=== PATIENT | male | born 1940 | race Caucasian/White ===

== ENCOUNTER 2021-08-28 12:03 | Inpatient (IN) | payer MEDICARE ==
[2021-08-28 13:24] LABS: #Basophils 0.1 10x3/uL (0.0-0.2); #Eosinphils 0.4 10x3/uL (0.0-0.5); #Monocytes 0.8 10x3/uL (0.0-1.1); #Neutrophils 5.6 10x3/uL (1.5-8.4); %Basophils 0.7 % (0.0-2.0); %Eosinophils 4.3 % (0.0-6.0); %Lymphocytes 19.5 % (18.0-47.0); %Monocytes 9.2 % (0.0-10.0); %Neutrophils 65.8 % (40.0-75.0); Hemoglobin 8.4 g/dL (13.5-17.5); Mean Corpuscular HGB CONC 33.9 g/dL (32.0-36.0); Mean Corpuscular Hemoglobin 35.3 pg (27.0-33.0); Mean Corpuscular Volume 104.2 fl (81.2-95.1); Mean Platelet Volume 12.6 fl (7.4-10.4); Platelet Count 200 10x3/uL (150-450); RBC Distribution Width 13.4 % (11.5-14.5); Red Blood Cell (RBC) Count 2.38 10x6/uL (4.32-5.72); White Blood Cell (WBC) Count 8.4 10x3/uL (3.5-10.5)
[2021-08-28 13:57] LABS: ALT (SGPT) 10 U/L (8-55); AST (SGOT) 15 U/L (5-34); Albumin 3.7 g/dL (3.4-4.8); Alkaline Phosphatase 122 U/L (40-110); Anion Gap 28 mmol/L (10-20); BUN (Urea Nitrogen) 86 mg/dL (8.4-25.7); Bilirubin, Total 0.8 mg/dL (0.2-1.2); Calc. Creatinine Clearance 0 mL/min (70-130); Calcium 9.8 mg/dL (7.8-10.44); Carbon Dioxide 25 mmol/L (23-31); Chloride 92 mmol/L (98-107); Globulin 2.9 g/dL (2.4-3.5); Glucose 312 mg/dL (83-110); Potassium 4.7 mmol/L (3.5-5.1); Protein, Total 6.6 g/dL (5.8-8.1); Sodium 140 mmol/L (136-145)
[2021-08-28] MEDS ORDERED: Ketorolac Tromethamine 30 MG/ML VIAL ONE (14:12)
[2021-08-28 14:21] LABS: CKMB 2.5 ng/mL (0-6.6)
[2021-08-28] MEDS ORDERED: Acetaminophen 325 MG TAB PO PRN (15:55)
[2021-08-28] MEDS ORDERED: Ondansetron PF 4 MG/2 ML Vial IVP PRN (15:55)
[2021-08-28] MEDS ORDERED: Dextrose 5% in Water 1,000 ML IV PRN (16:19)
[2021-08-28] MEDS ORDERED: Dextrose 50% Abboject 50 ML SYRINGE SLOW IVP PRN (16:19)
[2021-08-28 16:33] LABS: Troponin I 0.242 ng/mL (< 0.028)
[2021-08-28 19:18] LABS: Iron 145 ug/dL (65-175); Iron Binding Capacity, Total 201 mcg/dL (261-462)
[2021-08-28 19:22] LABS: Troponin I 0.243 ng/mL (< 0.028)
[2021-08-28] MEDS ORDERED: Polyethylene Glycol 3350 17 GM Packet PO PRN (20:22)
[2021-08-28] MEDS ORDERED: hydrOXYzine 25 MG TAB PO SCH (20:30)
[2021-08-28] MEDS: HumaLOG 300 UNITS/3 ML VIAL SC PRN (21:24)
[2021-08-28] MEDS ORDERED: EPOETIN ALFA-EPBX (ESRD) 3,000 UNIT/ML VIAL SC SCH (23:59)
[2021-08-28] MEDS ORDERED: EPOETIN ALFA-EPBX (ESRD) 2,000 UNIT/ML VIAL SC SCH (23:59)
[2021-08-29 04:05] LABS: #Basophils 0.1 10x3/uL (0.0-0.2); #Eosinphils 0.5 10x3/uL (0.0-0.5); #Monocytes 1.1 10x3/uL (0.0-1.1); #Neutrophils 5.2 10x3/uL (1.5-8.4); %Basophils 0.6 % (0.0-2.0); %Eosinophils 6.3 % (0.0-6.0); %Lymphocytes 19.4 % (18.0-47.0); %Monocytes 12.6 % (0.0-10.0); %Neutrophils 60.7 % (40.0-75.0); Hemoglobin 8.4 g/dL (13.5-17.5); Mean Corpuscular HGB CONC 33.3 g/dL (32.0-36.0); Mean Corpuscular Hemoglobin 35.3 pg (27.0-33.0); Mean Corpuscular Volume 105.9 fl (81.2-95.1); Mean Platelet Volume 12.2 fl (7.4-10.4); Platelet Count 180 10x3/uL (150-450); RBC Distribution Width 13.3 % (11.5-14.5); Red Blood Cell (RBC) Count 2.38 10x6/uL (4.32-5.72); White Blood Cell (WBC) Count 8.5 10x3/uL (3.5-10.5)
[2021-08-29 04:08] LABS: Anion Gap 26 mmol/L (10-20); BUN (Urea Nitrogen) 80 mg/dL (8.4-25.7); Calc. Creatinine Clearance 5 mL/min (70-130); Calcium 9.9 mg/dL (7.8-10.44); Carbon Dioxide 21 mmol/L (23-31); Chloride 98 mmol/L (98-107); Glucose 207 mg/dL (83-110); Potassium 4.4 mmol/L (3.5-5.1); Sodium 141 mmol/L (136-145)
[2021-08-29 04:20] LABS: Platelet Morphology Comment Appears Adequate
[2021-08-29 04:21] LABS: Anisocytosis SLIGHT = 6-15 cells (100X) (0-5/hpf); Hypochromia SLIGHT = 6-15 cells (100X) (0-5/hpf); Macrocytosis SLIGHT = 6-15 cells (100X) (0-5/hpf); Microcytosis SLIGHT = 6-15 cells (100X) (0-5/hpf)
[2021-08-29] MEDS: HumaLOG 300 UNITS/3 ML VIAL SC PRN ×2 (05:48→17:05)
[2021-08-29] MEDS: traMADol HCl 50 MG TAB PO PRN (09:00)
[2021-08-29] MEDS ORDERED: ceFAZolin 2 GM/Dextrose 50 ML 2 GM in Premix Bag 1 BAG IVPB SCH (10:45)
[2021-08-29] MEDS ORDERED: Labetalol HCl 100 MG TAB PO PRN (14:39)
[2021-08-29] MEDS ORDERED: ALPRAZolam 0.25 MG TAB PO PRN (14:39)
[2021-08-29] MEDS ORDERED: cloNIDine 0.1 MG TAB PO PRN (15:31)
[2021-08-29] MEDS: Sevelamer Carbonate 800 MG TAB PO SCH ×2 (16:42→20:51)
[2021-08-29] MEDS: Polyethylene Glycol 3350 17 GM Packet PO SCH (20:35)
[2021-08-29] MEDS: Lantus 1000 UNITS/10 ML VIAL SC SCH (20:47)
[2021-08-29] MEDS: Losartan Potassium 50 MG TAB PO SCH (20:51)
[2021-08-29] MEDS: hydrOXYzine 25 MG TAB PO SCH (20:51)
[2021-08-29 23:36] LABS: SARS-CoV-2 NAA Rapid Test Not Detected (NotDetected)
[2021-08-30 04:44] LABS: #Basophils 0.1 10x3/uL (0.0-0.2); #Eosinphils 0.7 10x3/uL (0.0-0.5); #Neutrophils 5.3 10x3/uL (1.5-8.4); %Basophils 0.7 % (0.0-2.0); %Eosinophils 8.1 % (0.0-6.0); %Lymphocytes 19.9 % (18.0-47.0); %Neutrophils 59.5 % (40.0-75.0); Hemoglobin 7.8 g/dL (13.5-17.5); Mean Corpuscular HGB CONC 34.2 g/dL (32.0-36.0); Mean Corpuscular Hemoglobin 36.4 pg (27.0-33.0); Mean Corpuscular Volume 106.5 fl (81.2-95.1); Mean Platelet Volume 12.6 fl (7.4-10.4); Platelet Count 182 10x3/uL (150-450); RBC Distribution Width 13.2 % (11.5-14.5); Red Blood Cell (RBC) Count 2.14 10x6/uL (4.32-5.72); White Blood Cell (WBC) Count 8.9 10x3/uL (3.5-10.5)
[2021-08-30 04:54] LABS: Anion Gap 26 mmol/L (10-20); BUN (Urea Nitrogen) 80 mg/dL (8.4-25.7); Calc. Creatinine Clearance 5 mL/min (70-130); Calcium 9.7 mg/dL (7.8-10.44); Carbon Dioxide 23 mmol/L (23-31); Chloride 92 mmol/L (98-107); Glucose 284 mg/dL (83-110); Potassium 4.3 mmol/L (3.5-5.1); Sodium 137 mmol/L (136-145)
[2021-08-30 07:41] LABS: Macrocytosis SLIGHT = 6-15 cells (100X) (0-5/hpf); Platelet Morphology Comment Appears Adequate
[2021-08-30] MEDS ORDERED: EPINEPHrine 1 MG/ML AMP ONE ×2 (09:13→09:59)
[2021-08-30] MEDS ORDERED: Heparin 1,000 UNITS/ML VIAL ONE (09:13)
[2021-08-30] MEDS ORDERED: Protamine Sulfate 50 MG/5 ML VIAL ONE (09:14)
[2021-08-30] MEDS ORDERED: Heparin 5,000 UNITS/ML VIAL ONE (09:15)
[2021-08-30] MEDS ORDERED: Bupivacaine PF 0.5% 30 ML VIAL ONE (09:15)
[2021-08-30] MEDS ORDERED: Heparin 10,000 UNITS/ 10 ML VIAL ONE ×2 (09:19→13:06)
[2021-08-30] MEDS ORDERED: Lidocaine 1% (PF) 30 ML VIAL ONE (09:28)
[2021-08-30] MEDS ORDERED: Ropivacaine 0.5% HCl/PF (150 MG/30 ML VIAL) ONE (09:59)
[2021-08-30] MEDS ORDERED: Fentanyl 100 MCG/2 ML VIAL ONE (10:00)
[2021-08-30] MEDS ORDERED: Lidocaine 1% PF 5 ML VIAL ONE (10:00)
[2021-08-30] MEDS ORDERED: ceFAZolin 2 GM/Dextrose 50 ML IVPB ONE (10:02)
[2021-08-30] MEDS ORDERED: Sevelamer Carbonate 800 MG TAB PO SCH (10:30)
[2021-08-30] MEDS ORDERED: Propofol 1,000 MG/100 ML VIAL IV ONE (10:34)
[2021-08-30] MEDS ORDERED: ePHEDrine Sulfate 50 MG/10 ML VIAL ONE (13:09)
[2021-08-30] MEDS: hydrOXYzine 25 MG TAB PO SCH ×3 (16:20→20:39)
[2021-08-30] MEDS: Polyethylene Glycol 3350 17 GM Packet PO SCH ×2 (16:21→20:38)
[2021-08-30] MEDS: Furosemide 40 MG TAB PO SCH (16:22)
[2021-08-30] MEDS: Losartan Potassium 50 MG TAB PO SCH ×2 (16:34→20:39)
[2021-08-30] MEDS: Multivitamin W/ Minerals 1 TAB PO SCH (16:35)
[2021-08-30] MEDS: Sevelamer Carbonate 800 MG TAB PO SCH ×3 (16:35→21:11)
[2021-08-30] MEDS: HumaLOG 300 UNITS/3 ML VIAL SC PRN ×2 (16:38→20:47)
[2021-08-30] MEDS: Lantus 1000 UNITS/10 ML VIAL SC SCH (20:45)
[2021-08-31 05:33] LABS: #Eosinphils 0.6 10x3/uL (0.0-0.5); #Monocytes 1.2 10x3/uL (0.0-1.1); #Neutrophils 9.6 10x3/uL (1.5-8.4); %Basophils 0.3 % (0.0-2.0); %Eosinophils 5.2 % (0.0-6.0); %Lymphocytes 10.5 % (18.0-47.0); %Monocytes 9.6 % (0.0-10.0); %Neutrophils 74.5 % (40.0-75.0); Hemoglobin 6.6 g/dL (13.5-17.5); Mean Corpuscular HGB CONC 33.2 g/dL (32.0-36.0); Mean Corpuscular Hemoglobin 35.1 pg (27.0-33.0); Mean Corpuscular Volume 105.9 fl (81.2-95.1); Mean Platelet Volume 11.9 fl (7.4-10.4); Platelet Count 180 10x3/uL (150-450); RBC Distribution Width 13.4 % (11.5-14.5); Red Blood Cell (RBC) Count 1.88 10x6/uL (4.32-5.72); White Blood Cell (WBC) Count 12.9 10x3/uL (3.5-10.5)
[2021-08-31 05:47] LABS: Anion Gap 24 mmol/L (10-20); BUN (Urea Nitrogen) 93 mg/dL (8.4-25.7); Calc. Creatinine Clearance 5 mL/min (70-130); Calcium 9.7 mg/dL (7.8-10.44); Carbon Dioxide 25 mmol/L (23-31); Chloride 92 mmol/L (98-107); Glucose 150 mg/dL (83-110); Potassium 5.6 mmol/L (3.5-5.1); Sodium 135 mmol/L (136-145)
[2021-08-31] MEDS ORDERED: Clopidogrel Bisulfate 75 MG TAB PO SCH (09:00)
[2021-08-31] MEDS: Sevelamer Carbonate 800 MG TAB PO SCH ×3 (12:43→21:54)
[2021-08-31] MEDS: traMADol HCl 50 MG TAB PO PRN (12:43)
[2021-08-31] MEDS: Multivitamin W/ Minerals 1 TAB PO SCH (12:44)
[2021-08-31] MEDS: hydrOXYzine 25 MG TAB PO SCH ×3 (12:44→21:47)
[2021-08-31] MEDS: Polyethylene Glycol 3350 17 GM Packet PO SCH ×2 (12:45→22:16)
[2021-08-31] MEDS: HumaLOG 300 UNITS/3 ML VIAL SC PRN ×2 (12:46→15:59)
[2021-08-31] MEDS ORDERED: GoLYTELY 4,000 ml Bottle PO SCH (15:00)
[2021-08-31] MEDS: Lantus 1000 UNITS/10 ML VIAL SC SCH (22:15)
[2021-09-01 05:06] LABS: Anion Gap 26 mmol/L (10-20); BUN (Urea Nitrogen) 41 mg/dL (8.4-25.7); Calc. Creatinine Clearance 9 mL/min (70-130); Calcium 9.1 mg/dL (7.8-10.44); Carbon Dioxide 27 mmol/L (23-31); Chloride 93 mmol/L (98-107); Glucose 139 mg/dL (83-110); Potassium 4.1 mmol/L (3.5-5.1); Sodium 142 mmol/L (136-145)
[2021-09-01 05:14] LABS: #Eosinphils 0.4 10x3/uL (0.0-0.5); #Monocytes 1.2 10x3/uL (0.0-1.1); #Neutrophils 6.2 10x3/uL (1.5-8.4); %Basophils 0.4 % (0.0-2.0); %Eosinophils 3.9 % (0.0-6.0); %Lymphocytes 21.2 % (18.0-47.0); %Monocytes 11.9 % (0.0-10.0); %Neutrophils 62.1 % (40.0-75.0); Hemoglobin 8.5 g/dL (13.5-17.5); Mean Platelet Volume 12.1 fl (7.4-10.4); Platelet Count 179 10x3/uL (150-450); RBC Distribution Width 18.3 % (11.5-14.5)
[2021-09-01] MEDS ORDERED: PROPOFOL 20 ML ONE (08:47)
[2021-09-01] MEDS: hydrOXYzine 25 MG TAB PO SCH ×3 (14:42→20:23)
[2021-09-01 14:49] VITALS: BMI 24.5
[2021-09-01] MEDS: Sevelamer Carbonate 800 MG TAB PO SCH ×4 (15:19→20:23)
[2021-09-01] MEDS: Multivitamin W/ Minerals 1 TAB PO SCH (15:21)
[2021-09-01] MEDS: Thiamine 100 MG TAB PO SCH (15:21)
[2021-09-01] MEDS: traMADol HCl 50 MG TAB PO PRN (15:21)
[2021-09-01] MEDS: Folic Acid 1 MG TAB PO SCH (15:22)
[2021-09-01] MEDS: Polyethylene Glycol 3350 17 GM Packet PO SCH ×2 (15:23→21:43)
[2021-09-01] MEDS: Furosemide 40 MG TAB PO SCH (15:33)
[2021-09-01] MEDS: Losartan Potassium 50 MG TAB PO SCH (15:33)
[2021-09-01] MEDS: Lantus 1000 UNITS/10 ML VIAL SC SCH (20:23)
[2021-09-01] MEDS: HumaLOG 300 UNITS/3 ML VIAL SC PRN (20:23)
[2021-09-02 05:12] LABS: Anion Gap 20 mmol/L (10-20); BUN (Urea Nitrogen) 27 mg/dL (8.4-25.7); Calc. Creatinine Clearance 12 mL/min (70-130); Calcium 9.4 mg/dL (7.8-10.44); Carbon Dioxide 27 mmol/L (23-31); Chloride 95 mmol/L (98-107); Glucose 118 mg/dL (83-110); Potassium 4.1 mmol/L (3.5-5.1); Sodium 138 mmol/L (136-145)
[2021-09-02 05:30] LABS: #Eosinphils 0.4 10x3/uL (0.0-0.5); #Monocytes 0.9 10x3/uL (0.0-1.1); #Neutrophils 5.1 10x3/uL (1.5-8.4); %Basophils 0.4 % (0.0-2.0); %Lymphocytes 21.3 % (18.0-47.0); %Monocytes 10.7 % (0.0-10.0); %Neutrophils 62.1 % (40.0-75.0); Hemoglobin 7.7 g/dL (13.5-17.5); Mean Corpuscular Hemoglobin 34.1 pg (27.0-33.0); Mean Corpuscular Volume 103.1 fl (81.2-95.1); Mean Platelet Volume 12.2 fl (7.4-10.4); RBC Distribution Width 17.2 % (11.5-14.5); Red Blood Cell (RBC) Count 2.26 10x6/uL (4.32-5.72); White Blood Cell (WBC) Count 8.6 10x3/uL (3.5-10.5)
[2021-09-02 05:31] LABS: Platelet Count 169 10x3/uL (150-450)
[2021-09-02] MEDS: Sevelamer Carbonate 800 MG TAB PO SCH ×3 (09:22→20:22)
[2021-09-02] MEDS: Folic Acid 1 MG TAB PO SCH (09:22)
[2021-09-02] MEDS: Multivitamin W/ Minerals 1 TAB PO SCH (09:23)
[2021-09-02] MEDS: Polyethylene Glycol 3350 17 GM Packet PO SCH ×2 (09:23→20:23)
[2021-09-02] MEDS: Thiamine 100 MG TAB PO SCH (09:23)
[2021-09-02] MEDS: hydrOXYzine 25 MG TAB PO SCH ×3 (09:23→20:22)
[2021-09-02] MEDS: HumaLOG 300 UNITS/3 ML VIAL SC PRN (16:46)
[2021-09-02] MEDS: Lantus 1000 UNITS/10 ML VIAL SC SCH (21:50)
[2021-09-03 05:27] LABS: #Eosinphils 0.4 10x3/uL (0.0-0.5); #Neutrophils 6.4 10x3/uL (1.5-8.4); %Basophils 0.3 % (0.0-2.0); %Eosinophils 4.1 % (0.0-6.0); %Lymphocytes 18.3 % (18.0-47.0); %Monocytes 10.1 % (0.0-10.0); %Neutrophils 66.8 % (40.0-75.0); Hemoglobin 7.9 g/dL (13.5-17.5); Mean Corpuscular HGB CONC 33.2 g/dL (32.0-36.0); Mean Corpuscular Hemoglobin 33.9 pg (27.0-33.0); Mean Corpuscular Volume 102.1 fl (81.2-95.1); Mean Platelet Volume 11.8 fl (7.4-10.4); Platelet Count 160 10x3/uL (150-450); RBC Distribution Width 15.9 % (11.5-14.5); Red Blood Cell (RBC) Count 2.33 10x6/uL (4.32-5.72); White Blood Cell (WBC) Count 9.6 10x3/uL (3.5-10.5)
[2021-09-03 05:48] LABS: Anion Gap 17 mmol/L (10-20); BUN (Urea Nitrogen) 40 mg/dL (8.4-25.7); Calc. Creatinine Clearance 8 mL/min (70-130); Calcium 9.5 mg/dL (7.8-10.44); Carbon Dioxide 29 mmol/L (23-31); Chloride 94 mmol/L (98-107); Glucose 119 mg/dL (83-110); Potassium 4.4 mmol/L (3.5-5.1); Sodium 136 mmol/L (136-145)
[2021-09-03] MEDS: Sevelamer Carbonate 800 MG TAB PO SCH ×3 (08:22→20:27)
[2021-09-03] MEDS: Folic Acid 1 MG TAB PO SCH (08:22)
[2021-09-03] MEDS: Multivitamin W/ Minerals 1 TAB PO SCH (08:22)
[2021-09-03] MEDS: hydrOXYzine 25 MG TAB PO SCH ×3 (08:22→20:27)
[2021-09-03] MEDS: Thiamine 100 MG TAB PO SCH (08:23)
[2021-09-03] MEDS: Polyethylene Glycol 3350 17 GM Packet PO SCH ×2 (08:26→20:28)
[2021-09-03] MEDS: HumaLOG 300 UNITS/3 ML VIAL SC PRN (12:21)
[2021-09-03] MEDS: Lantus 1000 UNITS/10 ML VIAL SC SCH (20:44)
[2021-09-04 05:10] LABS: #Eosinphils 0.5 10x3/uL (0.0-0.5); #Monocytes 0.9 10x3/uL (0.0-1.1); #Neutrophils 5.5 10x3/uL (1.5-8.4); %Basophils 0.4 % (0.0-2.0); %Eosinophils 6.2 % (0.0-6.0); %Lymphocytes 15.8 % (18.0-47.0); %Monocytes 11.1 % (0.0-10.0); %Neutrophils 66.3 % (40.0-75.0); Hemoglobin 7.7 g/dL (13.5-17.5); Mean Corpuscular HGB CONC 33.5 g/dL (32.0-36.0); Mean Corpuscular Hemoglobin 33.9 pg (27.0-33.0); Mean Corpuscular Volume 101.3 fl (81.2-95.1); Mean Platelet Volume 11.6 fl (7.4-10.4); Platelet Count 158 10x3/uL (150-450); RBC Distribution Width 15.8 % (11.5-14.5); Red Blood Cell (RBC) Count 2.27 10x6/uL (4.32-5.72); White Blood Cell (WBC) Count 8.2 10x3/uL (3.5-10.5)
[2021-09-04 05:15] LABS: Anion Gap 21 mmol/L (10-20); BUN (Urea Nitrogen) 53 mg/dL (8.4-25.7); Calc. Creatinine Clearance 7 mL/min (70-130); Calcium 9.7 mg/dL (7.8-10.44); Carbon Dioxide 27 mmol/L (23-31); Chloride 92 mmol/L (98-107); Glucose 146 mg/dL (83-110); Potassium 4.8 mmol/L (3.5-5.1); Sodium 135 mmol/L (136-145)
[2021-09-04] MEDS: hydrOXYzine 25 MG TAB PO SCH ×3 (09:00→13:43)
[2021-09-04] MEDS ORDERED: EPOETIN ALFA-EPBX (ESRD) 4,000 UNIT/ML VIAL SC SCH (12:00)
[2021-09-04 12:53] VITALS: BP 125/60; TEMP 98
[2021-09-04] MEDS: Multivitamin W/ Minerals 1 TAB PO SCH (13:39)
[2021-09-04] MEDS: Polyethylene Glycol 3350 17 GM Packet PO SCH (13:39)
[2021-09-04] MEDS: Folic Acid 1 MG TAB PO SCH (13:39)
[2021-09-04] MEDS: Thiamine 100 MG TAB PO SCH (13:39)
[2021-09-04] MEDS: Sevelamer Carbonate 800 MG TAB PO SCH ×2 (13:40)
== END 2021-09-04 18:06 | DRG 356 ==
LOC: CSHERS 12:03 → CSHTELE 18:00 → OBSVTOIN 08-29 12:00
PROVIDERS: ADMIT Internal Medicine; ATTEND Internal Medicine
PROC: 3E1M39Z Irrigation of Peritoneal Cavity using Dialysate, Percutaneous Approach (ICD-10-PCS; 2021-08-29)
PROC: 031B3ZF Bypass Right Radial Artery to Lower Arm Vein, Percutaneous Approach (ICD-10-PCS; 2021-08-30)
PROC: 0JH63XZ Insertion of Tunneled Vascular Access Device into Chest Subcutaneous Tissue and Fascia, Percutaneous Approach (ICD-10-PCS; 2021-08-30)
PROC: 02HV33Z Insertion of Infusion Device into Superior Vena Cava, Percutaneous Approach (ICD-10-PCS; 2021-08-30)
PROC: 0WPGX3Z Removal of Infusion Device from Peritoneal Cavity, External Approach (ICD-10-PCS; 2021-08-30)
PROC: B548ZZA Ultrasonography of Superior Vena Cava, Guidance (ICD-10-PCS; 2021-08-30)
PROC: B5181ZA Fluoroscopy of Superior Vena Cava using Low Osmolar Contrast, Guidance (ICD-10-PCS; 2021-08-30)
PROC: 0DJ08ZZ Inspection of Upper Intestinal Tract, Via Natural or Artificial Opening Endoscopic (ICD-10-PCS; principal; 2021-09-01)
PROC: 0DBM8ZZ Excision of Descending Colon, Via Natural or Artificial Opening Endoscopic (ICD-10-PCS; 2021-09-01)
PROC: 5A1D70Z Performance of Urinary Filtration, Intermittent, Less than 6 Hours Per Day (ICD-10-PCS; 2021-09-04)
DX: K29.71 Gastritis, unspecified, with bleeding (principal); N18.6 End stage renal disease; I12.0 Hypertensive chronic kidney disease with stage 5 chronic kidney disease or end stage renal disease; E11.22 Type 2 diabetes mellitus with diabetic chronic kidney disease; K29.81 Duodenitis with bleeding; D63.1 Anemia in chronic kidney disease; M54.59 Other low back pain; I95.9 Hypotension, unspecified; K64.8 Other hemorrhoids; D53.9 Nutritional anemia, unspecified; K59.00 Constipation, unspecified; E11.51 Type 2 diabetes mellitus with diabetic peripheral angiopathy without gangrene; I35.0 Nonrheumatic aortic (valve) stenosis; Z20.822 Contact with and (suspected) exposure to COVID-19; I25.10 Atherosclerotic heart disease of native coronary artery without angina pectoris; Z99.2 Dependence on renal dialysis; Z95.5 Presence of coronary angioplasty implant and graft; Z95.2 Presence of prosthetic heart valve; Z95.0 Presence of cardiac pacemaker; Z79.02 Long term (current) use of antithrombotics/antiplatelets; Z79.899 Other long term (current) drug therapy; Z88.6 Allergy status to analgesic agent
CPT/HCPCS: 36415; 36416; 36430; 71045; 72100; 80048; 82274; 82553; 82607; 82728; 82746; 83540; 83550; 84484; 85025; 86140; 86850; 86900; 86901; 87040; 88305; 90935; 90945; 93005; 93010; 93306; 96372; 96374; 96375; C1713; C1751; C1752; C1776; G0257; G0378; J0171; J0690; J1644; J1815; J1885; J2001; J2405; J2704; J2720; J2795; J3010; P9016; Q5105; S0020; U0002; U0003; U0005

== ENCOUNTER 2022-06-20 05:51 | Inpatient (IN) | payer MEDICARE ==
[2022-06-20 06:29] VITALS: BMI 25.7
[2022-06-20] MEDS ORDERED: Bisacodyl 5 MG TAB PO PRN (06:47)
[2022-06-20] MEDS ORDERED: Acetaminophen 325 MG TAB PO PRN (06:47)
[2022-06-20] MEDS ORDERED: Senokot S 8.6-50 MG TAB PO PRN (06:47)
[2022-06-20] MEDS ORDERED: Dextrose 50% Abboject 50 ML SYRINGE SLOW IVP PRN (07:03)
[2022-06-20] MEDS ORDERED: HumaLOG 300 UNITS/3 ML VIAL SC PRN (07:03)
[2022-06-20] MEDS ORDERED: Dextrose 5% in Water 1,000 ML IV PRN (07:03)
[2022-06-20] MEDS ORDERED: Vancomycin Hemodialysis Sliding Scale FS SCH (07:45)
[2022-06-20 07:50] LABS: #Basophils 0.1 10x3/uL (0.0-0.2); #Eosinphils 0.3 10x3/uL (0.0-0.5); #Monocytes 0.9 10x3/uL (0.0-1.1); %Basophils 0.7 % (0.0-2.0); %Eosinophils 3.9 % (0.0-6.0); %Lymphocytes 23.7 % (18.0-47.0); %Monocytes 13.4 % (0.0-10.0); Hemoglobin 10.9 g/dL (13.5-17.5); Mean Corpuscular HGB CONC 32.2 g/dL (32.0-36.0); Mean Corpuscular Hemoglobin 31.7 pg (27.0-33.0); Mean Corpuscular Volume 98.3 fl (81.2-95.1); Mean Platelet Volume 12.5 fl (7.4-10.4); Platelet Count 130 10x3/uL (150-450); RBC Distribution Width 15.6 % (11.5-14.5); Red Blood Cell (RBC) Count 3.44 10x6/uL (4.32-5.72); White Blood Cell (WBC) Count 6.9 10x3/uL (3.5-10.5)
[2022-06-20 07:53] LABS: Anion Gap 20 mmol/L (10-20); BUN (Urea Nitrogen) 80 mg/dL (8.4-25.7); Calc. Creatinine Clearance 9 mL/min (70-130); Calcium 9.9 mg/dL (7.8-10.44); Carbon Dioxide 21 mmol/L (23-31); Chloride 94 mmol/L (98-107); Estimated GFR 9; Glucose 108 mg/dL (83-110); Magnesium 2.3 mg/dL (1.6-2.6); Phosphorus 4.3 mg/dL (2.3-4.7); Potassium 5.9 mmol/L (3.5-5.1); Sodium 129 mmol/L (136-145)
[2022-06-20 08:11] LABS: Vancomycin, Random 16.1 ug/mL (See Comment)
[2022-06-20] MEDS ORDERED: ALPRAZolam 0.25 MG TAB PO PRN (08:12)
[2022-06-20] MEDS ORDERED: Labetalol HCl 100 MG TAB PO SCH (09:00)
[2022-06-20] MEDS: cloNIDine 0.1 MG TAB PO SCH ×3 (09:13→20:43)
[2022-06-20] MEDS: Sevelamer Carbonate 800 MG TAB PO SCH ×3 (09:13→20:42)
[2022-06-20] MEDS: hydrOXYzine Pamoate 25 mg Capsule PO SCH ×3 (09:13→20:45)
[2022-06-20] MEDS: Polyethylene Glycol 3350 17 GM Packet PO SCH (09:13)
[2022-06-20] MEDS: Clopidogrel Bisulfate 75 MG TAB PO SCH (09:13)
[2022-06-20] MEDS: Heparin 5,000 UNITS/ML VIAL SC SCH ×3 (09:14→20:44)
[2022-06-20 09:49] LABS: HBSAg Index 0.19 S/CO (0-0.99); Hep B Surf Ag Non-Reactive S/CO (NonReactive)
[2022-06-20] MEDS ORDERED: Lidocaine 4% Cream 5 GM TUBE w/ Tegaderm TOP PRN (11:02)
[2022-06-20 13:40] LABS: Hep B Core Total Ab Non-Reactive (NonReactive); Hep B Core Total Index 0.09 S/CO (0-0.79); Hep C IgG Ab Non-Reactive (NonReactive); Hep C Index 0.13 S/CO (0-0.79)
[2022-06-20 15:21] LABS: HBSAB Concentration 9.04 mIU/mL
[2022-06-20] MEDS ORDERED: Vancomycin HCl 500 MG in Sodium Chloride 0.9% 100 ML IVPB SCH (17:00)
[2022-06-20] MEDS ORDERED: Cefepime 0.5 GM, Admixture Fee 1 EACH in Sodium Chloride 0.9% 100 ML IVPB SCH (18:00)
[2022-06-20 19:19] LABS: SARS-CoV-2 NAA Rapid Test Not Detected (NotDetected)
[2022-06-20] MEDS: Losartan Potassium 50 MG TAB PO SCH (20:45)
[2022-06-20] MEDS ORDERED: Lantus 1000 UNITS/10 ML VIAL SC SCH (21:00)
[2022-06-20] MEDS ORDERED: Amlodipine 5 MG TAB PO SCH (21:00)
[2022-06-21 05:03] LABS: #Eosinphils 0.1 10x3/uL (0.0-0.5); #Monocytes 0.8 10x3/uL (0.0-1.1); #Neutrophils 3.6 10x3/uL (1.5-8.4); %Basophils 0.7 % (0.0-2.0); %Eosinophils 1.9 % (0.0-6.0); %Lymphocytes 21.3 % (18.0-47.0); %Monocytes 13.1 % (0.0-10.0); %Neutrophils 62.5 % (40.0-75.0); Hemoglobin 9.6 g/dL (13.5-17.5); Mean Corpuscular Hemoglobin 32.2 pg (27.0-33.0); Mean Corpuscular Volume 97.7 fl (81.2-95.1); Mean Platelet Volume 12.8 fl (7.4-10.4); Platelet Count 129 10x3/uL (150-450); RBC Distribution Width 15.4 % (11.5-14.5); Red Blood Cell (RBC) Count 2.98 10x6/uL (4.32-5.72); White Blood Cell (WBC) Count 5.7 10x3/uL (3.5-10.5)
[2022-06-21 05:09] LABS: Anion Gap 16 mmol/L (10-20); BUN (Urea Nitrogen) 48 mg/dL (8.4-25.7); Calc. Creatinine Clearance 13 mL/min (70-130); Calcium 9.4 mg/dL (7.8-10.44); Carbon Dioxide 23 mmol/L (23-31); Chloride 99 mmol/L (98-107); Estimated GFR 14; Glucose 127 mg/dL (83-110); Potassium 5.3 mmol/L (3.5-5.1); Sodium 133 mmol/L (136-145)
[2022-06-21 08:40] LABS: Vancomycin, Random 18.9 ug/mL (See Comment)
[2022-06-21] MEDS ORDERED: EPOETIN ALFA-EPBX (ESRD) 4,000 UNIT/ML VIAL SC SCH (09:00)
[2022-06-21] MEDS ORDERED: Iopamidol 370 76% 100 ML VIAL ONE (09:53)
[2022-06-21] MEDS: Clopidogrel Bisulfate 75 MG TAB PO SCH (10:21)
[2022-06-21] MEDS: Losartan Potassium 50 MG TAB PO SCH (10:21)
[2022-06-21] MEDS: hydrOXYzine Pamoate 25 mg Capsule PO SCH ×2 (10:21→16:09)
[2022-06-21] MEDS: Sevelamer Carbonate 800 MG TAB PO SCH ×2 (10:21→15:33)
[2022-06-21] MEDS: Heparin 5,000 UNITS/ML VIAL SC SCH ×2 (10:22→15:34)
[2022-06-21] MEDS: cloNIDine 0.1 MG TAB PO SCH ×2 (10:29→15:33)
[2022-06-21] MEDS: Polyethylene Glycol 3350 17 GM Packet PO SCH (10:35)
[2022-06-21] MEDS ORDERED: Calcium Gluc 4.6 MEQ/10 ML (100 MG/ML) SLOW IVP SCH (14:25)
[2022-06-21] MEDS ORDERED: LOKELMA 5 GM PACKET PO SCH (14:30)
[2022-06-21 16:21] VITALS: BP 141/61; TEMP 98.5
== END 2022-06-21 16:57 | disposition short-term general hospital (02) | DRG 638 ==
LOC: CSHTELE 05:51
PROVIDERS: ADMIT Family Medicine; ATTEND Hospitalist
DX: E11.628 Type 2 diabetes mellitus with other skin complications (principal); E87.1 Hypo-osmolality and hyponatremia; I12.0 Hypertensive chronic kidney disease with stage 5 chronic kidney disease or end stage renal disease; R18.8 Other ascites; L03.116 Cellulitis of left lower limb; L08.9 Local infection of the skin and subcutaneous tissue, unspecified; E11.22 Type 2 diabetes mellitus with diabetic chronic kidney disease; N18.6 End stage renal disease; D69.6 Thrombocytopenia, unspecified; G89.29 Other chronic pain; Z20.822 Contact with and (suspected) exposure to COVID-19; K59.09 Other constipation; K21.9 Gastro-esophageal reflux disease without esophagitis; M54.9 Dorsalgia, unspecified; D63.1 Anemia in chronic kidney disease; E87.5 Hyperkalemia; E11.51 Type 2 diabetes mellitus with diabetic peripheral angiopathy without gangrene; Z79.4 Long term (current) use of insulin; Z99.2 Dependence on renal dialysis; Z88.6 Allergy status to analgesic agent; Z79.899 Other long term (current) drug therapy; Z79.02 Long term (current) use of antithrombotics/antiplatelets; Z90.49 Acquired absence of other specified parts of digestive tract; Z90.89 Acquired absence of other organs; Z83.3 Family history of diabetes mellitus
CPT/HCPCS: 36415; 36416; 75635; 76705; 80048; 80176; 80202; 83735; 84100; 85025; 86704; 90935; 93005; 93010; G0257; J0610; J0692; J1644; J1815; J3370; J3490; Q0177; Q5105; Q9967